=== PATIENT | female | born 1945 | race Hispanic/Latino ===

== ENCOUNTER 2017-07-13 14:05 | Emergency (ER) | payer OTHER, MEDICARE ==
[2017-07-13 14:10] VITALS: PULSE 97; RESP 16; TEMP 98.3
--- NOTE | 2017-07-13 14:49 | ED PDOC ---
HPI: General Adult Time Seen by Provider: 07/13/17 14:45 Chief Complaint (Nursing): Trauma Chief Complaint (Provider): FALL History Per: Patient (71 Y/O FEMALE H/O OSTEOPORESIS HERE FOR EVALUATION OF FALL TODAY. PATIENT NOTED TO HAVE HAD TRIP AND LANDED ON FACE/KNEES HANDS. NO LOC. NOT ON ANTICOAGULANTS.) Past Medical History Reviewed: Historical Data, Nursing Documentation, Vital Signs Vital Signs: Last Vital Signs Temp 98.3 F 07/13/17 14:07 Pulse 97 H 07/13/17 14:07 Resp 16 07/13/17 16:37 BP 153/77 H 07/13/17 16:37 Pulse Ox 99 07/13/17 16:37 - Family History Family History: States: No Known Family Hx - Allergies Allergies/Adverse Reactions: Allergies Allergy/AdvReac Type Severity Reaction Status Date / Time No Known Allergies Allergy Verified 07/13/17 14:07 Review of Systems ROS Statement: Except As Marked, All Systems Reviewed And Found Negative Physical Exam - Reviewed Nursing Documentation Reviewed: Yes Vital Signs Reviewed: Yes - Physical Exam Appears: Positive for: Well, Non-toxic, No Acute Distress Head Exam: Positive for: NORMAL INSPECTION, NORMOCEPHALIC. Negative for: ATRAUMATIC (ABRASION ALONG FOREHEAD. SWELLING NOTED LEFT EYEBROW.) Skin: Positive for: Normal Color, Warm, DRY Eye Exam: Positive for: Normal appearance, EOMI, PERRL, Periorbital swelling ( LEFT EYEBROW SWELLING.) ENT: Positive for: Normal ENT Inspection Neck: Positive for: Normal, Painless ROM Cardiovascular/Chest: Positive for: Regular Rate, Rhythm Respiratory: Positive for: CNT, Normal Breath Sounds Gastrointestinal/Abdominal: Positive for: Normal Exam, Bowel Sounds, Soft Back: Positive for: Normal Inspection Extremity: Positive for: Normal ROM, Swelling (BILATERAL HANDS WITH ABRASIONS BY DIP DORSAL SURFACE.), Other (ABRASION AND SWELLING LEFT KNEE; ) Neurologic/Psych: Positive for: Alert, Oriented - ECG O2 Sat by Pulse Oximetry: 98 - Progress ED Course And Treament: REFUSED TDAP. TYLENO 650MG HEAD: CT: IMPRESSION: Left frontal scalp hematoma with left superior palpebrum soft tissue swelling. No intracranial hemorrhage. Otherwise unremarkable. Examination technically limited as noted above. CT ORBITAL/FACIAL: IMPRESSION: Left frontal scalp hematoma with left superior palpebrum soft tissue swelling. No intracranial hemorrhage. Otherwise unremarkable. Examination technically limited as noted above. XRY OF KNEE: OSTEOARTHRITIS;NOFX XRY OF HAND: NO FX Disposition - Clinical Impression Clinical Impression: Scalp hematoma, Head injury, Abrasion - Patient ED Disposition Is Patient to be Admitted: No - Disposition Disposition: Routine/Home Disposition Time: 17:14 Condition: FAIR Instructions: Closed Head Injury, Contusion (DC), Skin Abrasions (DC) Forms: [employer] (Portuguese), [facility] ED School/Work Excuse Print Language: DOMINICAN
--- NOTE | 2017-07-13 15:23 | RAD ---
PROCEDURE: Right Knee Radiographs. HISTORY: knee injury COMPARISON: None. FINDINGS: BONES: Normal. No fracture. JOINTS: Patellofemoral osteoarthritis. Medial and lateral compartments appear preserved. There are no articular erosions. JOINT EFFUSION: None. OTHER FINDINGS: None. IMPRESSION: Patellofemoral osteoarthritis. No acute fracture.
--- NOTE | 2017-07-13 15:25 | RAD ---
PROCEDURE: Left Hand Radiographs. HISTORY: hand injury COMPARISON: None. FINDINGS: BONES: Normal. No fracture. JOINTS: Normal. No osteoarthritic changes. SOFT TISSUES: Normal. OTHER FINDINGS: None. IMPRESSION: Normal left hand radiographs.
--- NOTE | 2017-07-13 16:29 | CT ---
PROCEDURE: CT HEAD WITHOUT CONTRAST. HISTORY: head injury COMPARISON: None available. TECHNIQUE: Axial computed tomography images were obtained through the head/brain without intravenous contrast. Radiation dose: Total exam DLP = 912.53 mGy-cm. This CT exam was performed using one or more of the following dose reduction techniques: Automated exposure control, adjustment of the mA and/or kV according to patient size, and/or use of iterative reconstruction technique. FINDINGS: HEMORRHAGE: No intracranial hemorrhage. BRAIN: Examination is somewhat limited due to patient motion artifact particularly obscuring the posterior fossa. No intracranial mass. No evidence of acute infarct. No significant atrophy or microvascular ischemic change. VENTRICLES: Unremarkable. No hydrocephalus. CALVARIUM: No calvarial fracture. Small left frontal scalp hematoma extending into left superior palpebrum. PARANASAL SINUSES: Unremarkable as visualized. No significant inflammatory changes. MASTOID AIR CELLS: Unremarkable as visualized. No inflammatory changes. OTHER FINDINGS: None. IMPRESSION: Left frontal scalp hematoma with left superior palpebrum soft tissue swelling. No intracranial hemorrhage. Otherwise unremarkable. Examination technically limited as noted above.
[2017-07-13 16:37] VITALS: BP 153/77
--- NOTE | 2017-07-13 16:46 | CT ---
PROCEDURE: CT MAXILLOFACIAL BONES WITHOUT CONTRAST HISTORY: r/o facial fx COMPARISON: None TECHNIQUE: Contiguous axial CT images of the maxillofacial bones were obtained. Coronal and sagittal reformats were generated. Radiation dose: Total exam DLP = 702.17 mGy-cm. This CT exam was performed using one or more of the following dose reduction techniques: Automated exposure control, adjustment of the mA and/or kV according to patient size, and/or use of iterative reconstruction technique. FINDINGS: NASAL BONES: Unremarkable. ORBITS: No orbital fracture. No intraorbital hemorrhage. Soft tissue swelling of left superior palpebrum extending to the small left frontal scalp hematoma. PARANASAL SINUSES/ MASTOIDS: Clear. MAXILLA: No fracture. Apical lucency about left maxillary canine tooth, consistent with periodontal disease. MANDIBLE/ TEMPOROMANDIBULAR JOINTS: Unremarkable. SKULL BASE: Unremarkable. TEMPORAL BONES: Middle ears and mastoid grossly unremarkable. OTHER FINDINGS: None. IMPRESSION: No orbital fracture. Small left frontal scalp hematoma extending to left superior palpebrum. No intraorbital hemorrhage. Incidental apical lucency about left maxillary canine.
[2017-07-13 17:16] VITALS: O2SAT 98
== END 2017-07-13 17:46 | disposition home or self-care (01) ==
LOC: H.ER 14:05
DX: S09.90XA Unspecified injury of head, initial encounter (principal); S00.03XA Contusion of scalp, initial encounter; S00.83XA Contusion of other part of head, initial encounter; S80.212A Abrasion, left knee, initial encounter; S60.512A Abrasion of left hand, initial encounter; W19.XXXA Unspecified fall, initial encounter; Y92.89 Other specified places as the place of occurrence of the external cause